=== PATIENT | female | born 1945 | race Caucasian/White ===

== ENCOUNTER 2019-04-13 15:34 | Inpatient (IN) ==
[2019-04-13] MEDS ORDERED: ASPIRIN PO ONE (15:44)
[2019-04-13 16:47] LABS: BASO# 0.03 X1000 (0.0-0.2); BASO% 0.5 % (0.0-0.8); EOS# 0.15 X1000 (0.0-0.7); EOS% 2.7 % (0.0-10.0); HEMATOCRIT 34.9 % (37.0-47.0); HEMOGLOBIN 11.7 g/dL (12.0-16.0); IMM GRAN# 0.01 X1000 (0.0-0.04); IMM GRAN% 0.2 % (0.0-0.5); LYMPH# 1.03 X1000 (1.2-3.4); LYMPH% 18.8 % (20.5-51.1); MCH 30.4 PG (27-31); MCHC 33.5 g/dL (33-37); MCV 90.6 FL (81-99); MONO# 0.28 X1000 (0.11-0.59); MONO% 5.1 % (1.7-9.3); MPV 9.8 FL (7.4-10.4); NEUT# 3.97 X1000 (1.4-6.5); NEUT% 72.7 % (42.2-75.2); PLT 219 X1000 (130-400); RBC 3.85 XMIL (4.2-5.4); RDW 12.8 % (11.5-14.5); WBC 5.47 X1000 (4.8-10.8)
--- NOTE | 2019-04-13 16:47 | Diag Imaging Result Doc PS360 ---
EXAM: CHEST-2 VIEWS INDICATION: cp TECHNIQUE: 2 views COMPARISON: 10/15/2018 FINDINGS: There is trace right middle lobe subsegmental atelectasis. The lungs are grossly clear, otherwise. There is no discrete pleural fluid collection or pneumothorax. The cardiomediastinal silhouette and central vasculature are grossly unremarkable. IMPRESSION: Minimal right middle lobe subsegmental atelectasis. No definite acute chest pathology by plain radiograph, otherwise. Electronically signed by Trenton Villagomez 04/13/2019 4:45 PM
[2019-04-13] MEDS ORDERED: TYLENOL PO ONE (16:54)
[2019-04-13] MEDS ORDERED: NITROGLYCERIN SL ONE (16:54)
[2019-04-13 17:12] LABS: INR 1.01; PROTIME 13.8 Seconds (11.0-16.0)
[2019-04-13 17:13] LABS: PTT 29.3 Seconds (22.3-41.8)
[2019-04-13 17:18] LABS: AGAP 11; ALBUMIN 4.1 g/dL (3.5-5.0); ALKALINE PHOSPHATASE 59 U/L (32-104); BUN 11 mg/dL (8-22); CALCIUM 9.3 mg/dL (8.8-10.2); CHLORIDE 102 mmol/L (98-107); CK PROFILE 27 U/L (24-173); COSMO 275; CREATININE 0.8 mg/dL (0.5-0.9); ESTIMATED GFR > 60; GLUCOSE 105 mg/dL (70-104); GOT 12 U/L (10-30); GPT 9 U/L (10-36); POTASSIUM 4.5 mmol/L (3.5-5.1); SODIUM 138 mmol/L (136-145); TCO2 25 mmol/L (25-35)
--- NOTE | 2019-04-13 17:26 | EKG Report ---
Test Performed on : 04/13/2019 3:43:29 PM Test Reason : cp Blood Pressure : / mmHG Vent. Rate : 082 BPM Atrial Rate : 082 BPM P-R Int : 138 ms QRS Dur : 090 ms QT Int : 374 ms P-R-T Axes : 046 046 050 degrees QTc Int : 436 ms Normal sinus rhythm. Nonspecific ST abnormality Abnormal ECG When compared with ECG of 15-OCT-2018 17:54, No significant change was found Unconfirmed Result
--- NOTE | 2019-04-13 18:52 | PROVIDER DOCUMENTATION ---
This chart was entered by Jodie Aleman Scribe, acting as scribe for Abiodun Godwin MD. HPI-Chest Pain - General Chief Complaint: Chest Pain Stated Complaint: CHEST PAINS Time Seen by Provider: 04/13/19 15:50 Source: patient Allergies/Adverse Reactions: Patient Allergies Allergy/AdvReac Type Severity Reaction Status Date / Time Sulfa (Sulfonamide Allergy Severe NAUSEA/VOMI Verified 10/15/18 19:09 Antibiotics) TING Penicillins Allergy Mild RASH Verified 10/15/18 19:09 Home Medications: Home Medication List Medication Instructions Recorded Confirmed Last Taken Type Tizanidine [Zanaflex] 4 mg PO QPM 09/30/12 12/24/17 12/23/17 21:30 History Levothyroxine [Synthroid] 125 microgm PO QAM 03/22/13 12/24/17 12/24/17 01:00 History Furosemide [Lasix] 40 mg PO BID PRN 05/25/13 12/24/17 12/23/17 10:00 History Potassium Chloride [K-Tab ER] 10 meq PO DAILY PRN 05/25/13 12/24/17 12/23/17 10:00 History Morphine BUNDLE SHAKER [Morphine Sulfate BUNDLE SHAKER] 30 mg IV DIRECTED 12/04/13 12/24/17 12/24/17 History Trazodone [Desyrel] 150 mg PO QHS 12/04/13 12/24/17 12/23/17 21:30 History Lisinopril 40 mg PO QAM 06/18/14 12/24/17 12/24/17 10:00 History Metformin HCl [Metformin HCl ER] 500 mg PO BID 06/18/14 12/24/17 12/24/17 10:00 History Cephalexin [Keflex] 500 mg PO BID #20 cap 12/24/17 Unknown Rx Docusate Sodium [Colace] 100 mg PO BID #20 cap 12/24/17 Unknown Rx Lactulose 3 tbs PO QAM 12/24/17 12/24/17 12/24/17 10:00 History Polyethylene Glycol 3350 [Miralax] 0 gm PO QAM 12/24/17 12/24/17 12/24/17 10:00 History Mupirocin Cream [Bactroban Cream] 1 applicatn TOP TID #1 tube 06/22/18 Unknown Rx Sulfamethoxazole/Trimethoprim 1 ea PO BID 7 Days #14 tab 10/15/18 Unknown Rx [Bactrim Ds Tablet] - History of Present Illness-CP Nature of Presenting Problem: 73YOF PRESENTS TO ED CC RIGHT SIDE CHEST TIGHTNESS, THAT RADIATES TO RIGHT ELBOW, BACK AND IS INCREASED WITH INSPIRATION. PT ALSO REPORTS COUGH WITH MUCOUS PRODUCTION, VOMITING, DIZZINESS, HEADACHE, DECREASED APPETITE AND WEAKNESS FOR MONTHS. PT ALSO REPORTS SHE SAW HER ENT LAST WEEK AND WAS TOLD SHE HAD FLUID B EHIND RIGHT TM AND IS ON ABT. PT IS NONTOXIC IN APPEARANCE. Location: reports: other (RIGHT SIDED) Chest Pain Radiation: reports: arms (RIGHT ARM TO ELBOW), back (UPPER) Quality of Pain: reports: pressure, tightness Severity in ED: mild Onset/Duration: other (MONTHS) Timing: still present Modifying Factors: worse with: palpation Associated Symptoms: reports: dizziness, fatigue, vomiting, weakness Aspirin Treatment Today: 325 mg x 1, provided by ED Similar Symptoms Previously?: No Recently Seen Here or By Another Healthcare Provider: Yes (ENT 1 WEEK AGO) Review of Systems - Adult - REVIEW OF SYSTEMS - ADULT Constitutional: reports: see HPI, fatique. denies: chills, fever Eyes: reports: no symptoms reported Ears, Nose, Mouth & Throat: reports: no symptoms reported Cardiovascular: reports: see HPI, chest pain Respiratory: reports: see HPI, chronic cough Gastrointestinal: reports: see HPI, poor appetite, vomiting Genitourinary: reports: no symptoms reported Musculoskeletal: reports: no symptoms reported Integumentary: reports: no symptoms reported Neurological: reports: see HPI, dizziness/vertigo, headache/migraines Psychiatric: reports: no symptoms reported Endocrine: reports: no symptoms reported Hematologic/Lymphatic: reports: no symptoms reported Allergic/Immunologic: reports: no symptoms reported All Other Systems: Reviewed and Negative Past History - Adult - PAST MEDICAL HISTORY-ADULT Review of Records: reports: Nursing Assessment Review, Medications Reviewed, Social history reviewed & non-contributory. Major Childhood Illnesses: reports: denies history Cardiovascular: reports: HTN, hyperlipidemia Respiratory: reports: denies history Gastrointestinal: reports: GERD Obstetrical/Gynecological: reports: denies history Genitourinary: reports: chronic UTI's Musculoskeletal: reports: arthritis, chronic pain, fibromyalgia Neurological: reports: denies history Endocrine/Immune: reports: Diabetes, thyroid disorder (hypothyroidism) Other Conditions: reports: denies history Additional History: obesity - PRIOR SURGERIES/PROCEDURES Surgical/Procedure History: reports: appendectomy, cholecystectomy, hysterectomy , tonsillectomy, orthopedic (extremity), joint replacement (bilateral knee replacement), other (retropubic bladder suspension/abdominoplasty/laproscopy w/ adhesiolysis/breast reduction) - IMMUNIZATION STATUS Childhood Immunizations: See Nurse Assessment Flu Vaccine: See Nurse Assessment - FAMILY HISTORY Family History: reviewed, not pertinent Physical Exam-General - PHYSICAL EXAM-ADULT Initial Vital Signs Reviewed: Yes - CONSTITUTIONAL General Appearance: appears well, alert, no apparent distress. negative: anxious, combative - EYES Eyes: PERRL/EOMI - HEAD, EARS, NOSE, MOUTH & THROAT HENMT: normocephalic/atraumatic, moist mucous membranes - RESPIRATORY Respiratory: lungs clear, normal breath sounds, no pleuratic chest pain, no respiratory distress, no accessory muscle use. negative: chest non-tender (MILDLY TENDER TO PALPATION), crackles, rales, rhonchi, stridor, wheezing - CARDIOVASCULAR Cardiovascular: normal peripheral pulses, regular rate, rhythm, no edema, no gallop, no JVD, no murmur. negative: bradycardia, tachycardia - GASTROINTESTINAL (ABDOMEN) Abdominal Exam: normal bowel sounds, non tender, soft. negative: tenderness - MUSCULOSKELETAL Extremity: normal inspection, no calf tenderness, normal capillary refill, pedal edema (1/4 BILATERAL) - SKIN Integumentary: normal color. negative: diaphoresis - PSYCHIATRIC Psych/Mental Status: normal mood/affect, normal thought content, normal thought process, oriented x 3. negative: disoriented x 3, anxious, disheveled, depressed affect - HEART Score HEART Score: History: Moderately Suspicious HEART Score: ECG: Non-Specific Repolarization Disturbance/LBBB/PM HEART Score: Age: > or = 65 Years HEART Score: Risk Factors for Atherosclerotic Disease: 1 or 2 Risk Factors HEART Score: Troponin: < or = Normal Limit Total HEART Score:: 5 Progress - PLAN OF CARE/RESULTS Progress/Plan/Lab Results: Vital Signs - 8 hr 04/13/19 15:37 Temperature 97.7 F Pulse Rate 90 Respiratory Rate 18 Blood Pressure 181/97 O2 Sat by Pulse Oximetry 98 Laboratory Results - last 24 hr 04/13/19 04/13/19 04/13/19 16:40 16:40 16:40 WBC RBC Hgb Hct MCV MCH MCHC RDW Std Deviation Plt Count MPV Immature Gran % (Auto) Neut % (Auto) Lymph % (Auto) [place] % (Auto) Eos % (Auto) Baso % (Auto) Immature Gran # (Auto) Neut # (Auto) Lymph # (Auto) [place] # (Auto) Eos # (Auto) Baso # (Auto) PT INR PTT (Actin FS) Sodium 138 Potassium 4.5 Chloride 102 Carbon Dioxide 25 Anion Gap 11 BUN 11 Creatinine 0.8 Estimated GFR/1.73 m2 > 60 BUN/Creatinine Ratio 14 Glucose 105 H Calculated Osmolality 275 Calcium 9.3 Total Bilirubin 0.40 AST 12 ALT 9 L Alkaline Phosphatase 59 Creatine Kinase 27 Troponin T < 0.010 Evi-A-Alzgnwpfzfx Pept 265 Total Protein 7.0 Albumin 4.1 Globulin 3.0 Albumin/Globulin Ratio 1.0 04/13/19 04/13/19 16:40 16:40 WBC 5.47 RBC 3.85 L Hgb 11.7 L Hct 34.9 L MCV 90.6 MCH 30.4 MCHC 33.5 RDW Std Deviation 12.8 Plt Count 219 MPV 9.8 Immature Gran % (Auto) 0.2 Neut % (Auto) 72.7 Lymph % (Auto) 18.8 L [place] % (Auto) 5.1 Eos % (Auto) 2.7 Baso % (Auto) 0.5 Immature Gran # (Auto) 0.01 Neut # (Auto) 3.97 Lymph # (Auto) 1.03 L Lab[place] # (Auto) 0.28 Eos # (Auto) 0.15 Baso # (Auto) 0.03 PT 13.8 INR 1.01 PTT (Actin FS) 29.3 Sodium Potassium Chloride Carbon Dioxide Anion Gap BUN Creatinine Estimated GFR/1.73 m2 BUN/Creatinine Ratio Glucose Calculated Osmolality Calcium Total Bilirubin AST ALT Alkaline Phosphatase Creatine Kinase Troponin T Bvh-S-Hzfxmzcgzdt Pept Total Protein Albumin Globulin Albumin/Globulin Ratio Orders Category Date Time Status Cardiac Monitoring DIRECTED Care 04/13/19 15:45 Active Oxygen Therapy- ED Nursing DIRECTED Care 04/13/19 15:45 Active Saline Loc NOW Care 04/13/19 15:45 Active CHEST-2 VIEWS [RAD] Stat Exams 04/13/19 15:45 Completed CBC WITH ELECTRONIC DIFF [HEME] Stat Lab 04/13/19 16:40 Completed CK PROFILE [SP CHEM] Stat Lab 04/13/19 16:40 Completed COMPREHENSIVE METABOLIC PANEL [CHEM] Stat Lab 04/13/19 16:40 Completed PRO B-NATRIURETIC PEPTIDE Stat Lab 04/13/19 16:40 Completed PROTIME WITH INR [COAG] Stat Lab 04/13/19 16:40 Completed PTT [COAG] Stat Lab 04/13/19 16:40 Completed TROPONIN T Stat Lab 04/13/19 16:40 Completed TROPONIN T Stat Lab 04/13/19 18:21 Uncollected Acetaminophen [Tylenol] Med 04/13/19 16:54 Discontinued 650 mg PO NOW ONE Aspirin Med 04/13/19 15:44 Discontinued 325 mg PO NOW ONE Nitroglycerin Sl [Nitroglycerin] Med 04/13/19 16:54 Discontinued 0.4 mg SL NOW ONE CP/SOB/Palp >45 yrs of Age Stat Oth 04/13/19 15:44 Ordered EKG [EKG] Stat Ther 04/13/19 15:45 Draft Result Diagrams: 04/13/19 16:40 04/13/19 16:40 - REASSESSMENT Reassessment #1 Time Reassessed: 17:09 Status: improving Reassessment Comment: CHEST IS STILL A LITTLE TIGHT BUT GREATLY IMPROVED SINCE BEING GIVEN ASA - EKG 1 Time of EKG reading by physician:: 15:50 EKG Read and Signed by:: Abiodun Godwin EKG Interpretation (*Must complete 3 of following elements*): Abnormal Rate: 82 Rhythm: NORMAL SINUS QRS: normal ST Wave: non-specific ST changes - XRAY 1 XRAY: Bilateral XRAY Study: Chest Impression: See EMR Report (IMPRESSION: Minimal right middle lobe subsegmental atelectasis. No definite acute chest pathology by plain radiograph, otherwise. Electronically signed by Trenton Villagomez 04/13/2019 4:45 PM) - CONSULTS/PCP/HOSPITALIST Notification #1 *Consult/PCP/Hospitalist*: DR KELSEY Time Discussed: 18:50 Consult Disposition: Admit Departure - Departure Date of Disposition Decision: 04/13/19 Time of Disposition Decision: 18:51 DIAGNOSIS: Chest pain, Chronic bronchitis, Diabetes mellitus Disposition: ADMITTED INPATIENT 09 Certified Medical Emergency: Emergent Condition: Stable Additional Freetext Instructions: ED Follow Up Instructions: You have been treated by a care provider in the Emergency Department. These instructions are being provided to you so you can have an understanding of how to care for yourself upon discharge. Upon discharge from the Emergency Department, you are responsible for making arrangements for follow-up care by a physician of your choice. Take all prescribed medications as directed. Return to the Emergency Department immediately for any new or worsening symptoms. You may call the Physician Referral phone number at [phone] to obtain a list of Physicians who are taking new patients. Referrals and Follow-Ups: More Drake MD [Primary Care Provider] - - Critical Care Note This patient required my direct & personal management of CC.: No Attestation - Physician/ DENISE Attestation Patient care was provided by Advanced Practice Provider:: No The physician spent face to face time with patient:: Yes Advanced Practice Provider documentation review:: Supervising physician onsite and consulted in the evaluation and care of this patient. The physician did have a face to face encounter with the patient. This chart was documented by the indicated scribe, (Jodie Aleman Scribe) and accurately reflects the services I performed and decisions made by me, Abiodun Godwin MD, as attested by the provider's signature.
[2019-04-13] MEDS ORDERED: DUONEB (A & A) INH ONE (19:07)
[2019-04-13] MEDS ORDERED: DUONEB (A & A) INH SCH (22:00)
[2019-04-13] MEDS ORDERED: MORPHINE IV PRN (22:15)
[2019-04-13] MEDS: DUONEB (A & A) INH SCH ×2 (22:53→23:06)
[2019-04-14] MEDS: DUONEB (A & A) INH SCH ×6 (04:21→23:01)
[2019-04-14 04:56] LABS: BILIRUBIN URINE NEGATIVE (NEGATIVE); COLOR YELLOW; GLUCOSE URINE NEGATIVE (NEGATIVE); KETONE URINE NEGATIVE (NEGATIVE); URINE BACTERIA NEGATIVE /HFP; URINE EPITHELIAL CELLS <10 /HPF (<10); URINE RBC <10 /HPF (<10); URINE SOURCE CLEAN CATCH; URINE WBC <10 /HPF (<10)
[2019-04-14 04:57] LABS: LEUKOCYTES URINE 1+ (NEGATIVE)
[2019-04-14 06:18] LABS: BLOOD URINE NEGATIVE (NEGATIVE); CLARITY SL. CLOUDY (CLEAR); NITRITE URINE NEGATIVE (NEGATIVE); PROTEIN URINE NEGATIVE (NEGATIVE); SP GRAVITY URINE 1.015; UROBILINOGEN URINE NORMAL
[2019-04-14] MEDS: SYNTHROID PO SCH ×2 (08:41)
[2019-04-14] MEDS: BACTROBAN OINTMENT TOP SCH ×3 (08:41→17:17)
[2019-04-14] MEDS: PRINIVIL PO SCH (08:41)
[2019-04-14] MEDS: LASIX PO SCH (08:41)
[2019-04-14] MEDS: PATIENT'S OWN MED PO SCH (08:59)
--- NOTE | 2019-04-14 09:45 | HISTORY AND PHYSICAL ---
PRIMARY CARE PHYSICIAN: Dr. Drake. CHIEF COMPLAINT: Right-sided chest pain with tightness that radiated to her right elbow and back that was worse with inspiration. HISTORY OF PRESENTING ILLNESS: This is a 73-year-old female who presents to [facility] ER with complaints of right-sided chest pain and tightness that radiated to her right arm down to her elbow and through to her back. States the pain was worse with inspiration. She is also noted to have a cough with thick white mucus production, dizziness, headache, and has had a decreased appetite and weakness for months, she states. She saw her ENT last week and was told she had some fluid behind her right tympanic membrane and was placed on antibiotics. Her workup has been negative with 3 troponins negative. Urinalysis was negative. Chest x-ray showed minimal right middle lobe subsegmental atelectasis but no definite acute chest pathology by plain radiograph otherwise. She was admitted for further evaluation and treatment. States that she felt much better after she received an aspirin and breathing treatment. Her heart score was a 5. PAST MEDICAL HISTORY: 1. Hypertension. 2. Hyperlipidemia. 3. GERD. 4. Diabetes type 2. 5. Chronic UTIs. 6. Arthritis. 7. Chronic pain. 8. Fibromyalgia. 9. Hypothyroidism. PAST SURGICAL HISTORY: 1. Appendectomy. 2. Cholecystectomy. 3. Hysterectomy. 4. Tonsillectomy. 5. Bilateral knee replacement. 6. Retropubic bladder suspension. 7. Abdominoplasty. 8. Breast reduction. FAMILY HISTORY: Reviewed and noncontributory. SOCIAL HISTORY: She currently lives with family. Denies any tobacco, alcohol or illicit drug use. ALLERGIES: 1. Sulfa. 2. Penicillin. HOME MEDICATIONS: We are holding her metformin 500 mg p.o. b.i.d. We will continue the followin. Lasix 40 mg p.o. daily. 2. Synthroid 125 mg mcg p.o. in the morning. 3. Lisinopril 40 mg p.o. in the morning. 4. Relistor 450 mg p.o. daily. 5. Bactroban 1 application topically t.i.d. 6. Potassium 10 mEq p.o. daily p.r.n. with Lasix. 7. Zanaflex 4 mg p.o. at bedtime. 8. Desyrel 150 mg p.o. at bedtime. LABORATORY DATA: Showed a white blood cell count of 5.47, hemoglobin 11.7, hematocrit 34.9, platelets 219,000. PT and INR of 13.8 and 1.01. Sodium of 138, potassium 4.5, chloride 102, CO2 25, BUN of 11, creatinine of 0.8 glucose 105. Cardiac enzymes x3 sets were negative. ProBNP of 265. Urinalysis was negative. Chest x-ray showed minimal right middle lobe subsegmental atelectasis but no definite acute chest pathology by plain radiograph otherwise. EKG showed normal sinus rhythm at 82. REVIEW OF SYSTEMS: She denied any fever, chills, blurred vision. She did have a little bit of dizziness, a headache, generalized weakness, right-sided chest pain that radiated to her right arm down to her elbow and through to her back, productive cough of thick white sputum, decreased appetite, generalized weakness. Denied any abdominal pain, constipation, diarrhea, burning or hurting with urination. PHYSICAL EXAMINATION: VITAL SIGNS: On arrival, she had a temperature of 97.7 degrees, pulse 90, respirations 18, blood pressure 181/97, saturating 98% on room air. GENERAL: This is a 73-year-old female who is lying in the bed and answers questions appropriately. HEENT: Normocephalic, atraumatic. Normal ENT inspection. Oropharynx and nares are clear. EYES: Pupils are equal, round, reactive to light and accommodation. Extraocular movements are intact. NECK: Normal inspection. Normal range of motion. LUNGS: Clear to auscultation bilaterally with equal lung expansion and chest wall movement. HEART: With regular rate and rhythm. No murmurs, rubs, or gallops. ABDOMEN: Soft, nontender, nondistended. Bowel sounds are present x4 quadrants. MUSCULOSKELETAL: She has 5/5 strength x4 extremities. NEUROLOGICAL: Cranial nerves 2-12 appear grossly intact. ASSESSMENT: 1. Right-sided chest pain. 2. Diabetes type 2. 3. Hypertension. 4. Hypothyroidism. PLAN: She was admitted to the medical unit, placed on telemetry, diabetic diet. We have trended her troponins, 3 sets have been negative. We will continue her on her home medications. I do not think that this is cardiac in nature and further orders after seen by attending and can most likely be discharged home later today. Dictated by NATLAIO Pérez for Rey Macias MD cc: NATALIO Pérez MD Dr. Diehl
[2019-04-14] MEDS ORDERED: M.V.I.-12 10 ML, FOLIC ACID 1 MG, MAGNESIUM SULFATE 1 GM, THIAMINE 100 MG in NS 1,000 ML IV ONE (10:23)
[2019-04-14] MEDS ORDERED: NS 1,000 ML IV SCH (10:30)
[2019-04-14] MEDS ORDERED: ZOFRAN IV PRN (12:47)
[2019-04-14] MEDS: TYLENOL PO PRN (13:15)
[2019-04-14] MEDS: DESYREL PO SCH (20:02)
[2019-04-14] MEDS ORDERED: ZANAFLEX PO SCH (21:00)
--- NOTE | 2019-04-14 22:51 | HISTORY AND PHYSICAL ---
ADDENDUM: Patient seen and examined by myself. Full note dictated and discussed with nurse practitioner. Patient presented to the hospital with chest pain right sided, cough, congestion, shortness of breath. We are going to admit her the hospital, follow her diabetes, hypertension. We will rule out MD although this is nonspecific chest pain and we will follow. cc: Rey Macias MD
[2019-04-15] MEDS: DUONEB (A & A) INH SCH ×6 (03:34→22:51)
[2019-04-15] MEDS: SYNTHROID PO SCH ×2 (06:13)
[2019-04-15] MEDS: PATIENT'S OWN MED PO SCH (08:42)
[2019-04-15] MEDS: TYLENOL PO PRN (08:42)
[2019-04-15] MEDS: PRINIVIL PO SCH (08:43)
[2019-04-15] MEDS: LASIX PO SCH (08:43)
[2019-04-15] MEDS: BACTROBAN OINTMENT TOP SCH ×3 (08:43→16:17)
[2019-04-15] MEDS: KLOR-CON PO SCH (08:43)
[2019-04-15] MEDS ORDERED: M.V.I.-12 10 ML, FOLIC ACID 1 MG, MAGNESIUM SULFATE 1 GM, THIAMINE 100 MG in NS 1,000 ML IV ONE (16:31)
--- NOTE | 2019-04-15 18:36 | PROGRESS NOTE ---
DATE: 04/15/2019 SUBJECTIVE: The patient notes that she still feels a little tired and fatigued and still has some dizziness. Denies any left-sided chest pain. Now notes that her right-sided chest pain is also epigastric pain. Still has right arm pain. PHYSICAL EXAMINATION: vital signs: Temperature 99.1 degrees, pulse 76, respiratory rate 18, BP 114/62. General: The patient is awake. She is in no respiratory distress. HEENT: Normocephalic. Neck: Supple. Cardiovascular: Regular rate. Chest: Clear. Abdomen: Soft, nondistended. Extremities: Moves all extremities. ASSESSMENT: 1. Diabetes type 2. 2. Hypertension. 3. Dizziness, likely vertigo. 4. Chest tightness, more likely bronchitis. 5. Hypothyroidism. PLAN: We will continue patient in the hospital. Continue to follow. Hopefully home over the next day or two. cc: Rey Macias MD
[2019-04-15] MEDS: DESYREL PO SCH (20:34)
[2019-04-15] MEDS: NEURONTIN PO SCH (20:34)
[2019-04-15] MEDS: ZANAFLEX PO SCH (20:35)
[2019-04-16] MEDS: DUONEB (A & A) INH SCH ×6 (03:26→22:50)
[2019-04-16] MEDS: SYNTHROID PO SCH ×2 (06:10)
[2019-04-16] MEDS: BACTROBAN OINTMENT TOP SCH ×3 (09:27→17:18)
[2019-04-16] MEDS: NEURONTIN PO SCH ×4 (09:27→22:01)
[2019-04-16] MEDS: PRINIVIL PO SCH (09:27)
[2019-04-16] MEDS: LASIX PO SCH (09:27)
[2019-04-16] MEDS ORDERED: SOLU-MEDROL IV ONE (10:35)
[2019-04-16 11:28] LABS: HEMATOCRIT 31.8 % (37.0-47.0); HEMOGLOBIN 10.5 g/dL (12.0-16.0); MCH 31.1 PG (27-31); MCV 94.1 FL (81-99); MPV 9.8 FL (7.4-10.4); RBC 3.38 XMIL (4.2-5.4); WBC 4.96 X1000 (4.8-10.8)
[2019-04-16] MEDS: PATIENT'S OWN MED PO SCH (11:49)
[2019-04-16] MEDS: GLUCOPHAGE XR PO SCH ×2 (11:49→22:01)
[2019-04-16] MEDS: LEVAQUIN PO SCH (11:49)
[2019-04-16 11:57] LABS: AGAP 9; ALBUMIN 3.9 g/dL (3.5-5.0); ALKALINE PHOSPHATASE 47 U/L (32-104); BUN 15 mg/dL (8-22); CALCIUM 8.8 mg/dL (8.8-10.2); CHLORIDE 103 mmol/L (98-107); COSMO 281; CREATININE 0.8 mg/dL (0.5-0.9); ESTIMATED GFR > 60; GLUCOSE 109 mg/dL (70-104); GOT 16 U/L (10-30); GPT 10 U/L (10-36); MAGNESIUM 1.7 mg/dL (1.5-2.7); POTASSIUM 4.2 mmol/L (3.5-5.1); SODIUM 140 mmol/L (136-145); TCO2 29 mmol/L (25-35); TOTAL PROTEIN 6.4 g/dL (6.3-8.3)
--- NOTE | 2019-04-16 15:33 | PROGRESS NOTE ---
DATE: 04/16/2019 SUBJECTIVE: Patient notes that overall she was feeling better yesterday. However, today, does not feels well. She is having increased cough, congestion, and increased shortness of breath. Denies fevers or chills. Denies any production to her cough. PHYSICAL EXAMINATION: Temperature 97.6, pulse of 69, respiratory rate 18, BP 139/79. General: Patient is awake. She is in no respiratory distress. She is coughing. She does appear as though she does not feel well. She has nonlabored breathing currently. HEENT: Normocephalic. Neck: Supple. Cardiovascular Examination: Regular rate. Chest: Clear. Abdomen: Soft, nondistended. Extremities: Moves all extremities. Neurologic: No changes. ASSESSMENT: 1. Acute bronchitis. We are going to recheck her labs. Check a chest x-ray. At this point, we will place her on antibiotics, Levaquin. 2. Type 2 diabetes. 3. Hypothyroidism. 4. Hypertension. PLAN: Hopefully, the patient can continue to improve and hopefully chest x-ray and labs will be normal, and she can be discharged home in the next day or two. cc: Rey Macias MD
--- NOTE | 2019-04-16 15:35 | Diag Imaging Result Doc PS360 ---
CHEST-2 VIEWS - 04/16/2019 INDICATION: hypoxia COMPARISON: 04/13/2019 FINDINGS: The lungs are normally expanded and clear. Heart size and mediastinal contours are normal. No pneumothorax or pleural effusion. IMPRESSION: Negative exam. Electronically signed by Shravan Foster 04/16/2019 3:33 PM
[2019-04-16] MEDS ORDERED: BENADRYL PO ONE (18:01)
--- NOTE | 2019-04-16 19:16 | Diag Imaging Result Doc PS360 ---
CT THORAX W/O CONTRAST - 04/16/2019 INDICATION: sob COMPARISON: Prior chest x-rays FINDINGS: No mass or adenopathy. Heart and great vessels are normal. There is some scant linear atelectasis in the right upper lobe in the lung bases. No infiltrates or edema. Upper abdominal images are normal. There are moderate degenerative changes of the spine. No acute or suspicious bony lesion. IMPRESSION: No acute disease. This exam was performed using automated exposure control, adjustment of mA or kV according to patient size, and/or use of iterative reconstruction technique Electronically signed by Shravan Foster 04/16/2019 7:14 PM
[2019-04-16] MEDS: ZANAFLEX PO SCH (22:01)
[2019-04-16] MEDS: DESYREL PO SCH (22:01)
[2019-04-17] MEDS: DUONEB (A & A) INH SCH ×3 (02:40→11:39)
[2019-04-17] MEDS: SYNTHROID PO SCH ×2 (06:16)
[2019-04-17 07:32] VITALS: BP 136/73
[2019-04-17] MEDS: PRINIVIL PO SCH (09:28)
[2019-04-17] MEDS: LASIX PO SCH (09:28)
[2019-04-17] MEDS: KLOR-CON PO SCH (09:28)
[2019-04-17] MEDS: NEURONTIN PO SCH (09:28)
[2019-04-17] MEDS: GLUCOPHAGE XR PO SCH (09:28)
[2019-04-17] MEDS: LEVAQUIN PO SCH (09:28)
[2019-04-17] MEDS: BACTROBAN OINTMENT TOP SCH ×2 (09:29→13:01)
[2019-04-17] MEDS: PATIENT'S OWN MED PO SCH (11:36)
--- NOTE | 2019-04-17 14:20 | DISCHARGE SUMMARY ---
ADMISSION DATE: 04/13/2019 DISCHARGE DATE: 04/17/2019 DIAGNOSES: 1. Right-sided chest pain resolved. 2. Acute bronchitis. 3. Diabetes mellitus type 2. 4. Hypothyroidism. 5. Hypertension. DIAGNOSTICS: 1. 04/13/2019 chest x-ray revealed minimal right middle lobe subsegmental atelectasis. 2. 04/16/2019 chest x-ray revealed negative exam. 3. 04/16/2019 CT of the chest without contrast reveals no mass or adenopathy. Heart and great vessels are normal. There is some scant linear atelectasis in the right upper lobe in the lung bases. No infiltrates or edema. Upper abdominal images are normal. There are moderate degenerative changes of the spine. No acute or suspicious bony lesion. 4. Microbiology. Urine culture revealed no pathogenic growth. HOSPITAL COURSE: Ms Patel presented to the emergency room complaining of right-sided chest tightness that radiated to her right elbow and back. It was worse with inspiration along with cough and congestion, shortness of breath. Chest x-ray reveals atelectasis. She was ruled out for IL for which she was treated with DuoNeb and Levaquin. Thankfully today she feels better overall. Chest x-ray on the revealed a negative exam with a negative CT of the thorax without contrast. She remained afebrile. We did continue appropriate home medications. Blood sugars stayed in the 105 to 170 range. She did rule out for IL by troponins and EKG. Thankfully today she is better ready for discharge. DISCHARGE PHYSICAL EXAM: Vital signs: Blood pressure is 136/73 with a heart rate of 79, respirations 20, temperature is 97.8 degrees oral with room air sat 93-100%. Cardiovascular: Regular rate and rhythm. S1 and S2 appreciated. She has no lower extremity edema. Calves are nontender bilateral with peripheral pulses palpable x4 extremities. Pulmonary: Breath sounds are clear with no increased work of breathing noted. Chest rises and falls symmetric with respiration. Gastrointestinal: Abdomen soft, nontender, nondistended with bowel sounds in all 4 quadrants. Neurologic: She is alert, oriented x3. Skin: Warm and dry. DISCHARGE MEDICATIONS: 1. Trazodone 150 mg p.o. at bedtime. 2. Potassium chloride 10 mEq p.o. daily. 3. Lasix 40 mg p.o. daily. 4. Lisinopril 40 mg p.o. daily. 5. Metformin 500 mg p.o. b.i.d. 6. Gabapentin 300 mg p.o. t.i.d. 7. Relistor 450 mg p.o. daily. 8. Levothyroxine 137 mcg daily. 9. Zanaflex 4 mg p.o. at bedtime. 10. Levaquin 500 mg p.o. daily. FOLLOWUP: 1. Dr. More Drake 04/24/2019 at 10:30. 2. She has been instructed to call to be seen sooner or return to the emergency room for any syncope, dizziness, chest pain, palpitations, increasing shortness of breath, productive cough, temperature greater than 101, any nausea, vomiting, diarrhea, constipation, black or bloody vomitus or stools or any hematuria, dysuria, frequency, urgency. She is being discharged home in stable condition with family members. TIME SPENT: Greater than 30 minutes. Dictated by NATALIO Beauchamp for Rey Macias MD cc: NATALIO Beauchamp MD
--- NOTE | 2019-04-18 06:05 | DISCHARGE SUMMARY ---
ADMISSION DATE: 04/13/2019 DISCHARGE DATE: 04/17/2019 ADDENDUM: Patient seen and examined by myself. Full note dictated and discussed with nurse practitioner. On discharge, patient is awake and alert. She is in no current distress. She still states that she feels short of breath, although her labs are normal. Chest x-ray is normal. CT scan of her chest is normal. Her clinical exam is normal. She is saturating normally on room air as well. We will discharge her home. She can follow up outpatient with her primary care if her symptoms do not improve. cc: Rey Macias MD
== END 2019-04-17 12:57 | disposition home or self-care (01) | DRG 203 ==
LOC: P.ED 15:34 → INTOOBSV 22:13 → P.MEDSURG 22:13 → OBSVTOIN 22:13 → P.MEDSURG 22:20
PROVIDERS: ATTEND Family Medicine